=== PATIENT | male | born 1950 | race Caucasian/White ===

== ENCOUNTER 2018-11-25 14:22 | Inpatient (IN) | payer MEDICARE ==
[~2018-11-25] VITALS: Ht 180.3 cm; Wt 99.8 kg
[2018-11-25 15:46] LABS: BASOPHILS % 0.8 % (0.0-2.0); EOSINOPHILS % 2.3 % (0.0-5.0); LYMPHOCYTES % 12.8 % (20.0-50.0); MEAN CORPUSCULAR HEMOGLOBIN 23.7 pg (28.0-32.0); MEAN CORPUSCULAR VOLUME 79.3 fL (80.0-94.0); MEAN PLATELET VOLUME 7.2 fl (7.4-10.4); MONOCYTES % 6.8 % (2.0-8.0); NEUTROPHILS % 77.3 % (40.0-76.0); PLATELET 454 x1000/uL (130-400); RED BLOOD CELL COUNT 2.64 mill/uL (4.7-6.1); RED CELL DISTRIBUTION WIDTH 19.4 % (11.6-14.6)
[2018-11-25 15:49] LABS: CHLORIDE 109 mEq/L (98-107)
[2018-11-25 15:51] LABS: HEMATOCRIT. 20.9 % (42.0-52.0); HEMOGLOBIN. 6.3 g/dL (14.0-18.0); PARTIAL THROMBOPLASTIN TIME 23.4 sec (23.4-31.0); PROTHROMBIN TIME 10.6 sec (9.6-11.0)
[2018-11-25 16:41] LABS: TOTAL IRON BINDING CAPACITY 373 ug/dL (250-450)
[2018-11-25 20:00] VITALS: BP 117/62
[2018-11-25 22:00] VITALS: BP 109/66
[2018-11-25] MEDS ORDERED: CLONIDINE 0.1MG TABLET PO PRN (22:15)
[2018-11-25] MEDS ORDERED: ACETAMINOPHEN 325MG TABLET PO PRN (22:15)
[2018-11-25] MEDS ORDERED: MAGNESIUM/ALUMINUM HYDROXIDE/SIMETHICONE 30ML UDC PO PRN (22:15)
[2018-11-25] MEDS ORDERED: ONDANSETRON HCL 4MG/2ML INJ IV PRN (22:15)
[2018-11-25] MEDS ORDERED: HYDROCODONE/ACETAMINOPHEN 5/325MG TABLET PO PRN (22:15)
[2018-11-25] MEDS ORDERED: DOCUSATE SODIUM 100MG CAPSULE PO PRN (22:15)
[2018-11-25] MEDS ORDERED: GUAIFENESIN 200MG/10ML SUGAR FREE UDC PO PRN (22:15)
[2018-11-25 22:35] VITALS: BP 109/66
[2018-11-25] MEDS: ALPRAZOLAM 0.5 MG TABLET PO SCH (23:44)
[2018-11-25] MEDS: OMEPRAZOLE 20MG CAPSULE EXTENDED RELEASE PO SCH (23:49)
[2018-11-25] MEDS: TAMSULOSIN HCL 0.4MG SR CAPSULE PO SCH (23:50)
[2018-11-26] VITALS (9 sets, daily range): BP systolic 94–136; BP diastolic 44–83
[2018-11-26] MEDS ORDERED: OMEP20TA15 PO (01:22)
[2018-11-26] MEDS ORDERED: GABA-529 MT (01:22)
[2018-11-26] MEDS ORDERED: ALPR0.5T MT (01:27)
[2018-11-26] MEDS ORDERED: TAMS-11 MT (01:27)
[2018-11-26] MEDS ORDERED: FERR236T3 MT (01:27)
[2018-11-26] MEDS ORDERED: TRAZ150T78 MT (01:27)
[2018-11-26] MEDS: DIPHENHYDRAMINE 50MG/ML VIAL IV PRN ×2 (04:00→22:29)
[2018-11-26] MEDS: GABAPENTIN 300MG CAPSULE PO SCH ×3 (06:47→21:20)
[2018-11-26] MEDS: OMEPRAZOLE 20MG CAPSULE EXTENDED RELEASE PO SCH (06:47)
[2018-11-26] MEDS: FERROUS SULFATE 325MG TABLET PO SCH ×3 (08:10→17:04)
[2018-11-26] MEDS: TAMSULOSIN HCL 0.4MG SR CAPSULE PO SCH (09:02)
[2018-11-26] MEDS: ALPRAZOLAM 0.5 MG TABLET PO SCH ×2 (09:02→17:04)
[2018-11-26 09:24] LABS: BASOPHILS % 0.9 % (0.0-2.0); EOSINOPHILS % 6.2 % (0.0-5.0); HEMATOCRIT. 24.7 % (42.0-52.0); HEMOGLOBIN. 7.5 g/dL (14.0-18.0); LYMPHOCYTES % 16.8 % (20.0-50.0); MEAN CORPUSCULAR HEMOGLOBIN 25.3 pg (28.0-32.0); MEAN CORPUSCULAR VOLUME 83.3 fL (80.0-94.0); MEAN PLATELET VOLUME 7.7 fl (7.4-10.4); MONOCYTES % 9.4 % (2.0-8.0); NEUTROPHILS % 66.7 % (40.0-76.0); PLATELET 429 x1000/uL (130-400); RED BLOOD CELL COUNT 2.96 mill/uL (4.7-6.1); RED CELL DISTRIBUTION WIDTH 18.8 % (11.6-14.6)
[2018-11-26 09:33] LABS: CHLORIDE 110 mEq/L (98-107)
[2018-11-26 09:42] LABS: LDL CHOLESTEROL 83 mg/dL (5-100)
[2018-11-26 09:44] LABS: HDL CHOLESTEROL 44 mg/dL (40-59); T4 FREE 0.88 ng/dL (0.76-1.46)
[2018-11-26] MEDS ORDERED: TRAZODONE HCL 50MG TABLET PO SCH (21:00)
[2018-11-26 23:50] LABS: BASOPHILS % 1.3 % (0.0-2.0); EOSINOPHILS % 7.2 % (0.0-5.0); HEMATOCRIT. 26.3 % (42.0-52.0); HEMOGLOBIN. 8.2 g/dL (14.0-18.0); LYMPHOCYTES % 18.6 % (20.0-50.0); MEAN CORPUSCULAR HEMOGLOBIN 25.2 pg (28.0-32.0); MEAN CORPUSCULAR VOLUME 81.1 fL (80.0-94.0); MEAN PLATELET VOLUME 7.7 fl (7.4-10.4); MONOCYTES % 11.6 % (2.0-8.0); NEUTROPHILS % 61.3 % (40.0-76.0); PLATELET 385 x1000/uL (130-400); RED BLOOD CELL COUNT 3.24 mill/uL (4.7-6.1); RED CELL DISTRIBUTION WIDTH 19.3 % (11.6-14.6)
[2018-11-27] VITALS: BP 137/77
[2018-11-27 04:00] VITALS: BP 131/77
[2018-11-27] MEDS: GABAPENTIN 300MG CAPSULE PO SCH ×3 (05:06→14:09)
[2018-11-27] MEDS: OMEPRAZOLE 20MG CAPSULE EXTENDED RELEASE PO SCH (06:20)
[2018-11-27 06:58] LABS: BASOPHILS % 1.1 % (0.0-2.0); EOSINOPHILS % 7.8 % (0.0-5.0); HEMATOCRIT. 28.5 % (42.0-52.0); HEMOGLOBIN. 8.8 g/dL (14.0-18.0); LYMPHOCYTES % 15.3 % (20.0-50.0); MEAN CORPUSCULAR HEMOGLOBIN 25.6 pg (28.0-32.0); MEAN CORPUSCULAR VOLUME 83.1 fL (80.0-94.0); MEAN PLATELET VOLUME 7.8 fl (7.4-10.4); MONOCYTES % 10.7 % (2.0-8.0); NEUTROPHILS % 65.1 % (40.0-76.0); PLATELET 396 x1000/uL (130-400); RED BLOOD CELL COUNT 3.43 mill/uL (4.7-6.1); RED CELL DISTRIBUTION WIDTH 18.4 % (11.6-14.6)
[2018-11-27 08:00] VITALS: BP 118/69
[2018-11-27 08:12] LABS: CHLORIDE 106 mEq/L (98-107)
[2018-11-27 08:57] LABS: HEPATITIS A AB IGM NEGATIVE (NEGATIVE)
[2018-11-27] MEDS: ALPRAZOLAM 0.5 MG TABLET PO SCH ×2 (09:17→18:24)
[2018-11-27] MEDS: FERROUS SULFATE 325MG TABLET PO SCH ×3 (09:18→18:25)
[2018-11-27] MEDS: TAMSULOSIN HCL 0.4MG SR CAPSULE PO SCH (09:18)
[2018-11-27 12:00] VITALS: BP 132/73
[2018-11-27 13:15] LABS: HEPATITIS B SURFACE ANTIGEN NEGATIVE
[2018-11-27] MEDS ORDERED: SIMETHICONE 40 MG/0.6 ML 30ML ONE (14:52)
[2018-11-27] MEDS ORDERED: MIDAZOLAM HCL 5 MG/5 ML VIAL ONE ×2 (15:39→15:49)
[2018-11-27] MEDS ORDERED: FENTANYL CITRATE/PF 50MCG/ML 2ML VIAL ONE (15:39)
[2018-11-27] MEDS ORDERED: MIDAZOLAM HCL 5 MG/5 ML VIAL IV PRN (15:39)
[2018-11-27] MEDS ORDERED: FENTANYL CITRATE/PF 50MCG/ML 2ML VIAL IV PRN (15:39)
[2018-11-27 17:43] VITALS: BP 132/73
== END 2018-11-27 19:15 | disposition home or self-care (01) | DRG 812 ==
LOC: ER 14:22 → 6EST 16:40 → EDBEDREQ 16:54 → EDBEDREQTM 16:54 → EDBEDREQ 17:02 → ENRESERV 18:31
PROVIDERS: ADMIT Family Medicine Adult Medicine; ATTEND Family Medicine Adult Medicine
PROC: 30233N1 Transfusion of Nonautologous Red Blood Cells into Peripheral Vein, Percutaneous Approach (ICD-10-PCS; principal; 2018-11-25)
PROC: 0DB98ZX Excision of Duodenum, Via Natural or Artificial Opening Endoscopic, Diagnostic (ICD-10-PCS; 2018-11-27)
DX: D50.9 Iron deficiency anemia, unspecified (principal); F41.9 Anxiety disorder, unspecified; K21.9 Gastro-esophageal reflux disease without esophagitis; N40.0 Benign prostatic hyperplasia without lower urinary tract symptoms; M54.9 Dorsalgia, unspecified; K31.7 Polyp of stomach and duodenum; G89.29 Other chronic pain; Z90.49 Acquired absence of other specified parts of digestive tract; Z93.3 Colostomy status; Z79.899 Other long term (current) drug therapy
CPT/HCPCS: 36415; 71045; 80048; 80061; 80076; 83540; 83550; 83880; 84439; 84443; 84481; 84484; 85384; 86705; 86709; 86803; 86850; 86900; 86920; 87340; 88305; 93005; 93970; 97162; 97165; 99285; J1200; J2250; J3010; P9021

== ENCOUNTER 2018-12-28 09:56 | Inpatient (IN) | payer MEDICARE ==
[~2018-12-28] VITALS: Ht 180.3 cm; Wt 99.9 kg
[~2018-12-28 09:56] MED LIST: ALPR0.5T MT; FERR236T3 MT; GABA-529 MT; OMEP20TA15 PO; TAMS-11 MT; TRAZ150T78 MT
[2018-12-28 11:33] LABS: PROTHROMBIN TIME 10.5 sec (9.6-11.0)
[2018-12-28 11:35] LABS: CHLORIDE 107 mEq/L (98-107)
[2018-12-28 11:39] LABS: BASOPHILS % 0.6 % (0.0-2.0); EOSINOPHILS % 2.4 % (0.0-5.0); HEMATOCRIT. 21.5 % (42.0-52.0); LYMPHOCYTES % 14.3 % (20.0-50.0); MEAN CORPUSCULAR HEMOGLOBIN 26.7 pg (28.0-32.0); MEAN CORPUSCULAR VOLUME 86.9 fL (80.0-94.0); MONOCYTES % 6.2 % (2.0-8.0); NEUTROPHILS % 76.5 % (40.0-76.0); PLATELET 381 x1000/uL (130-400); RED BLOOD CELL COUNT 2.47 mill/uL (4.7-6.1); RED CELL DISTRIBUTION WIDTH 22.2 % (11.6-14.6)
[2018-12-28 11:53] LABS: HEMOGLOBIN. 6.6 g/dL (14.0-18.0)
[2018-12-28] MEDS ORDERED: DOCUSATE SODIUM 100MG CAPSULE PO PRN (13:00)
[2018-12-28] MEDS ORDERED: ACETAMINOPHEN 325MG TABLET PO PRN (13:00)
[2018-12-28] MEDS ORDERED: GUAIFENESIN 200MG/10ML SUGAR FREE UDC PO PRN (13:00)
[2018-12-28] MEDS ORDERED: MAGNESIUM/ALUMINUM HYDROXIDE/SIMETHICONE 30ML UDC PO PRN (13:00)
[2018-12-28] MEDS ORDERED: CLONIDINE 0.1MG TABLET PO PRN (13:00)
[2018-12-28 14:34] LABS: CREATINE KINASE 51 IU/L (39-308)
[2018-12-28 16:44] LABS: TOTAL IRON BINDING CAPACITY 450 ug/dL (250-450)
[2018-12-28 16:58] LABS: FOLIC ACID (FOLATE) SERUM 7.2 ng/mL (>5.38)
[2018-12-28 20:48] VITALS: BP 132/73
[2018-12-28 22:00] VITALS: BP 132/73
[2018-12-28] MEDS: DIPHENHYDRAMINE 50MG/ML VIAL IV PRN (22:22)
[2018-12-28] MEDS: LORAZEPAM 0.5MG TABLET PO PRN (22:22)
[2018-12-28] MEDS ORDERED: INFLUENZA VIRUS VACCINE(AFLURIA) 0.5ML SYR IM ONE (23:45)
[2018-12-28] MEDS ORDERED: PNEUMOCOCCAL 23-VAL P-SAC VAC 0.5 ML IM ONE (23:45)
[2018-12-29] VITALS: BP 105/56
[2018-12-29 00:07] LABS: HEMATOCRIT 22.8 % (42.0-52.0); HEMOGLOBIN 7.1 g/dL (14.0-18.0)
[2018-12-29 00:24] LABS: CREATINE KINASE 50 IU/L (39-308)
[2018-12-29 04:00] VITALS: BP 117/74
[2018-12-29 07:58] LABS: EOSINOPHILS % 7.6 % (0.0-5.0); HEMATOCRIT. 23.8 % (42.0-52.0); HEMOGLOBIN. 7.4 g/dL (14.0-18.0); LYMPHOCYTES % 17.2 % (20.0-50.0); MEAN PLATELET VOLUME 7.5 fl (7.4-10.4); MONOCYTES % 9.3 % (2.0-8.0); NEUTROPHILS % 64.9 % (40.0-76.0); PLATELET 355 x1000/uL (130-400); RED BLOOD CELL COUNT 2.74 mill/uL (4.7-6.1); RED CELL DISTRIBUTION WIDTH 20.6 % (11.6-14.6)
[2018-12-29 08:16] LABS: CHLORIDE 108 mEq/L (98-107)
[2018-12-29 08:26] LABS: PHOSPHORUS 3.6 mg/dL (2.5-4.9)
[2018-12-29 08:27] LABS: HDL CHOLESTEROL 41 mg/dL (40-59); LDL CHOLESTEROL 74 mg/dL (5-100); T4 FREE 0.92 ng/dL (0.76-1.46)
[2018-12-29 08:31] VITALS: BP 122/66
[2018-12-29] MEDS: LORAZEPAM 0.5MG TABLET PO PRN ×2 (09:01→18:57)
[2018-12-29] MEDS: OMEPRAZOLE 20MG CAPSULE EXTENDED RELEASE PO SCH (09:01)
[2018-12-29 11:51] VITALS: BP 120/67
[2018-12-29] MEDS ORDERED: IRON SUCROSE COMPLEX 100 MG/5 ML ML IV NR (13:00)
[2018-12-29 15:41] VITALS: BP 107/63
[2018-12-29] MEDS ORDERED: ONDANSETRON HCL 4MG/2ML INJ IV PRN (16:30)
[2018-12-29 20:00] VITALS: BP 111/60
[2018-12-29] MEDS: DIPHENHYDRAMINE 50MG/ML VIAL IV PRN (21:21)
[2018-12-29] MEDS: HYDROCODONE/ACETAMINOPHEN 5/325MG TABLET PO PRN (23:58)
[2018-12-30] VITALS: BP 116/66
[2018-12-30 04:00] VITALS: BP 119/64
[2018-12-30] MEDS: LORAZEPAM 0.5MG TABLET PO PRN (04:35)
[2018-12-30 08:00] VITALS: BP 116/74
[2018-12-30 08:25] LABS: BASOPHILS % 2.1 % (0.0-2.0); EOSINOPHILS % 10.1 % (0.0-5.0); HEMATOCRIT. 23.2 % (42.0-52.0); HEMOGLOBIN. 7.3 g/dL (14.0-18.0); LYMPHOCYTES % 17.2 % (20.0-50.0); MEAN CORPUSCULAR HEMOGLOBIN 27.1 pg (28.0-32.0); MEAN CORPUSCULAR VOLUME 86.2 fL (80.0-94.0); MEAN PLATELET VOLUME 7.5 fl (7.4-10.4); MONOCYTES % 9.9 % (2.0-8.0); NEUTROPHILS % 60.7 % (40.0-76.0); PLATELET 326 x1000/uL (130-400); RED BLOOD CELL COUNT 2.69 mill/uL (4.7-6.1); RED CELL DISTRIBUTION WIDTH 21.3 % (11.6-14.6)
[2018-12-30] MEDS: OMEPRAZOLE 20MG CAPSULE EXTENDED RELEASE PO SCH (08:45)
[2018-12-30] MEDS ORDERED: IRON SUCROSE COMPLEX 100 MG/5 ML ML IV SCH (09:00)
[2018-12-30] MEDS: HYDROCODONE/ACETAMINOPHEN 5/325MG TABLET PO PRN (09:19)
[2018-12-30 09:50] LABS: CHLORIDE 106 mEq/L (98-107)
[2018-12-30 10:03] LABS: HAPTOGLOBIN 200 mg/dL (30-200)
[2018-12-30 11:49] VITALS: BP 127/85
[2018-12-30 11:58] VITALS: BP 127/85
[2018-12-31 09:08] LABS: IMMUNOGLOBULIN A 124 mg/dL (61-437); IMMUNOGLOBULIN G 1078 mg/dL (700-1600); IMMUNOGLOBULIN M 61 mg/dL (20-172)
[2019-01-07 13:39] LABS: HGB A 98.2; HGB A2 1.8 %; HGB C 0 %; HGB F 0 %; HGB PROFILE INTERPRETATION 0; HGB S 0 %; HGB SOLUBILITY NEGATIVE
== END 2018-12-30 14:34 | disposition home or self-care (01) | DRG 812 ==
LOC: ER 10:08 → 6WST 12:10 → ENRESERV 19:16
PROVIDERS: ADMIT Family Medicine Adult Medicine; ATTEND Family Medicine Adult Medicine
PROC: 30233N1 Transfusion of Nonautologous Red Blood Cells into Peripheral Vein, Percutaneous Approach (ICD-10-PCS; principal; 2018-12-28)
DX: D50.9 Iron deficiency anemia, unspecified (principal); F41.9 Anxiety disorder, unspecified; G89.29 Other chronic pain; K31.7 Polyp of stomach and duodenum; M54.5 Low back pain; B19.20 Unspecified viral hepatitis C without hepatic coma; K57.90 Diverticulosis of intestine, part unspecified, without perforation or abscess without bleeding; F32.9 Major depressive disorder, single episode, unspecified; K58.9 Irritable bowel syndrome, unspecified; K21.9 Gastro-esophageal reflux disease without esophagitis; N40.0 Benign prostatic hyperplasia without lower urinary tract symptoms; Z90.49 Acquired absence of other specified parts of digestive tract; Z87.891 Personal history of nicotine dependence; Z93.3 Colostomy status
CPT/HCPCS: 36415; 71045; 80048; 80061; 82270; 82550; 82607; 82728; 82746; 82784; 83010; 83021; 83540; 83550; 83615; 83735; 84100; 84439; 84443; 84484; 85014; 85018; 85044; 85660; 86334; 86850; 86880; 86900; 86920; 90686; 90732; 93005; 97162; 97166; 99285; J1200; J2405; P9016